=== PATIENT | male | born 1955 | race African-American/Black ===

== ENCOUNTER 2018-10-19 06:39 | Emergency (ER) | payer OTHER ==
[2018-10-19] MEDS ORDERED: NORMAL SALINE 1000 ML 1,000 ML IV ONE (07:14)
[2018-10-19] MEDS ORDERED: ONDANSETRON HCL INJ/PF 4 MG/2 ML SDV IV ONE ×2 (07:14→09:53)
[2018-10-19] MEDS ORDERED: KETOROLAC TROMETHAMINE INJ/PF 30 MG/1 ML SDV IV ONE (07:15)
[2018-10-19 07:27] LABS: ALANINE AMINOTRANSFERASE 61 U/L (21-72); ALBUMIN 3.8 g/dL (3.5-5.0); ALKALINE PHOSPHATASE 66 U/L (38-126); ANION GAP 6 (5-19); ASPARTATE AMINO TRANSFERASE 69 U/L (17-59); BILIRUBIN,DIRECT 0.2 mg/dL (0.0-0.4); BILIRUBIN,TOTAL 1.1 mg/dL (0.2-1.3); BLOOD UREA NITROGEN 14 mg/dL (7-20); CALCIUM 9.1 mg/dL (8.4-10.2); CARBON DIOXIDE 29 mmol/L (22-30); CHLORIDE 103 mmol/L (98-107); GLUCOSE 140 mg/dL (75-110); POTASSIUM 4.3 mmol/L (3.6-5.0); TOTAL PROTEIN 7.2 g/dL (6.3-8.2)
[2018-10-19 07:33] LABS: ABSOLUTE BASOPHILS # (AUTO) 0.1 10^3/uL (0.0-0.2); ABSOLUTE EOSINOPHILS # (AUTO) 0.2 10^3/uL (0.0-0.6); ABSOLUTE LYMPHOCYTES (AUTO) 1.5 10^3/uL (0.5-4.7); ABSOLUTE MONOCYTES (AUTO) 1.1 10^3/uL (0.1-1.4); EOSINOPHILS % (AUTO) 2.3 % (0-6); HEMATOCRIT 38.5 % (37.9-51.0); HEMOGLOBIN 12.7 g/dL (13.5-17.0); MEAN CORPUSCULAR HEMOGLOBIN 26.8 pg (27.0-33.4); MEAN CORPUSCULAR HGB CONC 33.1 g/dL (32.0-36.0); MEAN CORPUSCULAR VOLUME 81 fl (80-97); PLATELET COUNT 266 10^3/uL (150-450); RED BLOOD COUNT 4.76 10^6/uL (4.35-5.55); RED CELL DISTRIBUTION WIDTH 15.5 % (11.5-14.0); SEGMENTED NEUTROPHILS % (AUTO) 67.7 % (42-78); TOTAL CELLS COUNTED % (AUTO) 100 %; WHITE BLOOD COUNT 8.9 10^3/uL (4.0-10.5)
--- NOTE | 2018-10-19 07:42 | RADIOLOGY REPORT (SQ) ---
EXAM DESCRIPTION: XR CHEST 1 VIEW COMPLETED DATE/TME: 10/19/2018 07:05 CLINICAL HISTORY: 63 years, Male, fever COMPARISON: None. NUMBER OF VIEWS: One TECHNIQUE: AP view the chest LIMITATIONS: None. FINDINGS: The lungs are clear. The heart is normal in size. There is no proximal or pleural effusion. The bones are unremarkable. IMPRESSION: copyright 2010 [employer]- All Rights Reserved
[2018-10-19 07:50] LABS: APPEARANCE,URINE CLEAR; BILIRUBIN,URINE NEGATIVE (NEGATIVE); COLOR,URINE YELLOW; GLUCOSE, URINE NEGATIVE (NEGATIVE); KETONES,URINE NEGATIVE (NEGATIVE); LEUKOCYTE ESTERASE,URINE NEGATIVE (NEGATIVE); NITRITE,URINE NEGATIVE (NEGATIVE); PROTEIN,URINE NEGATIVE (NEGATIVE); URINE SPECIFIC GRAVITY 1.016
[2018-10-19 07:54] LABS: A TYPE INFLUENZA AG POSITIVE (NEGATIVE); B INFLUENZA AG NEGATIVE (NEGATIVE)
[2018-10-19] MEDS ORDERED: MORPHINE SULFATE 10 MG/ML INJ IV ONE (09:52)
[2018-10-19 09:54] VITALS: BP 119/79
--- NOTE | 2018-10-19 10:16 | ER Document Report ---
ED General - General Chief Complaint: General Weakness Stated Complaint: WEAKNESS Time Seen by Provider: 10/19/18 07:04 TRAVEL OUTSIDE OF THE [place] IN LAST 30 DAYS: No - HPI Notes: Patient presents emergency department for evaluation. He states on Saturday morning he started developing body aches. He is dry hacking cough. He complains of some mild sore throat. He just feels weak, near syncopal. He has had severe nausea but no emesis. Normal bowel movements. Still urinating. He was unaware of any fevers at home. - Related Data Allergies/Adverse Reactions: No Known Allergies Allergy (Unverified 10/19/18 06:51) Past Medical History - General Information source: Patient - Social History Smoking Status: Never Smoker Family History: Reviewed & Not Pertinent Patient has suicidal ideation: No Patient has homicidal ideation: No - Past Medical History Cardiac Medical History: Reports: Hx Hypercholesterolemia, Hx Hypertension Endocrine Medical History: Reports: Hx Diabetes Mellitus Type 2 Renal/ Medical History: Denies: Hx Peritoneal Dialysis Review of Systems - Review of Systems Constitutional: Malaise, Weakness EENT: No symptoms reported Cardiovascular: See HPI Respiratory: See HPI Gastrointestinal: See HPI Genitourinary: No symptoms reported Musculoskeletal: See HPI Skin: No symptoms reported Neurological/Psychological: No symptoms reported Physical Exam - Vital signs Vitals: Temp Pulse Resp BP Pulse Ox 100.7 F H 108 H 22 H 149/93 H 92 10/19/18 06:51 10/19/18 06:51 10/19/18 06:51 10/19/18 06:51 10/19/18 06:51 - Notes Notes: Vital signs reviewed, please refer to chart. Patient is normocephalic, atraumatic. Pupils equal round, reactive to light. Oral mucosa is moist. Pharynx is mildly erythematous without exudate. Neck is supple without meningismus. Heart is regular rate and rhythm. Lungs are clear to auscultation bilaterally. Abdomen is soft, nontender, normoactive bowel sounds throughout. Extremities without cyanosis, clubbing, edema. Peripheral pulses are equal. Skin is warm and dry. Examination of the spine is no midline tenderness or step-off. There is no paraspinal musculature tenderness is appreciated. Patient is awake, alert, oriented x3. Cranial nerves II to XII are grossly intact without focal neurological deficits. Strength is +5/5 bilateral upper and lower extremities. Reflexes symmetrical. Sensation is intact, gait within normal limits. Course - Re-evaluation Re-evalutation: 10/19/18 10:15 Patient presents to the emergency department for evaluation. Given his age, significant complaint of weakness, as well as a fever, septic workup was started. His symptoms however, are most consistent with influenza. He was given fluids, pain medication, nausea medication. His influenza swab was positive for influenza A. There are no other significant findings on his laboratory investigations or imaging that warranted acute intervention. Patient is feeling somewhat improved. He is told to stay well-hydrated. He is outside of the window for any sort of antiviral treatment. He is to follow-up with his doctor this week, return to the emergency department with worsening or new concerning symptoms. - Vital Signs Vital signs: Temp Pulse Resp BP Pulse Ox 100.7 F H 108 H 14 119/79 94 10/19/18 06:51 10/19/18 06:51 10/19/18 09:01 10/19/18 09:01 10/19/18 09:01 - Laboratory Result Diagrams: 10/19/18 07:00 10/19/18 07:00 Laboratory results interpreted by me: 10/19/18 10/19/18 10/19/18 06:50 07:00 07:00 Hgb 12.7 L MCH 26.8 L RDW 15.5 H Creatinine 1.37 H Est GFR (Non-Af Amer) 53 L Glucose 140 H POC Glucose 133 H AST 69 H Urine Urobilinogen 10/19/18 07:30 Hgb MCH RDW Creatinine Est GFR (Non-Af Amer) Glucose POC Glucose AST Urine Urobilinogen 4.0 H Discharge - Discharge Clinical Impression: Influenza A, Weakness Condition: Stable Disposition: HOME, SELF-CARE Instructions: Acetaminophen, Influenza ([facility]) [id number] Additional Instructions: Rest, stay well-hydrated. Tylenol and ibuprofen as needed for pain and fever. Use Zofran as needed for nausea. Follow-up with your doctor this week. If you develop worsening or new concerning symptoms of any sort, return to the emergency department for reevaluation. Prescriptions: Ondansetron [Zofran Odt 4 mg Tablet] 1 tab PO Q4H PRN #15 tab.rapdis PRN Reason: For Nausea/Vomiting Forms: Return to Work
--- NOTE | 2018-10-19 11:10 | EKG REPORT ---
SEVERITY:- BORDERLINE ECG - SINUS TACHYCARDIA BORDERLINE T WAVE ABNORMALITIES : Confirmed by: Wen Ramirez MD 19-Oct-2018 11:08:45
== END 2018-10-19 10:40 | disposition home or self-care (01) ==
LOC: ER 06:39
DX: J10.1 Influenza due to other identified influenza virus with other respiratory manifestations (principal); R05 Cough; R53.1 Weakness; R11.0 Nausea; E11.9 Type 2 diabetes mellitus without complications; I10 Essential (primary) hypertension; R53.81 Other malaise; R50.9 Fever, unspecified
CPT/HCPCS: 93005; 96376; 99284; 96361; 96374; 96375; 36415; 82962; 85025; 80053; 81001; 83605; 87804; 71045; 93010; J1885; J2270; J2405; J7030

== ENCOUNTER 2018-10-25 15:42 | Inpatient (IN) | payer OTHER ==
--- NOTE | 2018-10-25 17:02 | RADIOLOGY REPORT (SQ) ---
EXAM DESCRIPTION: CHEST 2 VIEWS COMPLETED DATE/TIME: 10/25/2018 4:49 pm REASON FOR STUDY: SOB COMPARISON: 10/19/2018 EXAM PARAMETERS: NUMBER OF VIEWS: two views TECHNIQUE: Digital Frontal and Lateral radiographic views of the chest acquired. RADIATION DOSE: NA LIMITATIONS: none FINDINGS: LUNGS AND PLEURA: New airspace consolidation in the right lung base. There is also small amount of fluid noted within the minor fissure as well as the major fissure. There is increase abigail pt acuity of pulmonary vasculature throughout. MEDIASTINUM AND HILAR STRUCTURES: No masses or contour abnormalities. HEART AND VASCULAR STRUCTURES: Heart normal size. No evidence for failure. BONES: No acute findings. HARDWARE: None in the chest. OTHER: No other significant finding. IMPRESSION: New airspace consolidation in the right lung base. This may represent pneumonia in the correct clinical setting. With the presence of fluid in the minor and major fissure as well as incre ased conspicuity of pulmonary vasculature, this could also represent congestive heart failure. Clini omar correlation is required. TECHNICAL DOCUMENTATION: JOB ID: [id number] [employer]- All Rights Reserved Reading location - IP/workstation name: [email or web address]
--- NOTE | 2018-10-25 17:17 | ER Document Report ---
ED Medical Screen (RME) - General Chief Complaint: Flu Symptoms Stated Complaint: FLU LIKE SYMPTOMS Time Seen by Provider: 10/25/18 16:33 Notes: Patient is a 63-year-old male who presents to the emergency department for generalized shortness of breath and weakness. Patient was seen at this facility 1 week ago diagnosed with influenza A. Patient states he initially felt as though he was getting better but then felt as though he was getting worse. Patient states he is unable to walk around his house without getting short of breath. Patient states he is also noted bilateral lower extremities to be "more swollen than normal." Patient denies any history of congestive heart failure. LUNGS: Diminished to auscultation bilaterally, No respiratory distress at rest although when patient starts to speak in full sentences he becomes tachypneic. HEART: Regular rate and rhythm. No murmur EXTREMITIES: Moves all 4 extremities spontaneously. normal radial pulses bilaterally. +1 pitting edema noted bilateral lower extremities, compression stockings noted bilaterally. I have greeted and performed a rapid initial assessment of this patient. A comprehensive ED assessment and evaluation of the patient, analysis of test results and completion of the medical decision making process will be conducted by additional ED providers. TRAVEL OUTSIDE OF THE [place] IN LAST 30 DAYS: No - Related Data Allergies/Adverse Reactions: No Known Allergies Allergy (Verified 10/25/18 15:43) Past Medical History - Social History Chew tobacco use (# tins/day): No Frequency of alcohol use: None Drug Abuse: None - Past Medical History Cardiac Medical History: Reports: Hx Hypercholesterolemia, Hx Hypertension Endocrine Medical History: Reports: Hx Diabetes Mellitus Type 2 Renal/ Medical History: Denies: Hx Peritoneal Dialysis Physical Exam - Vital signs Vitals: Temp Pulse Resp BP Pulse Ox 98.6 F 77 20 140/83 H 94 10/25/18 15:53 10/25/18 15:53 10/25/18 15:53 10/25/18 15:53 10/25/18 15:53 Course - Vital Signs Vital signs: Temp Pulse Resp BP Pulse Ox 98.6 F 77 20 140/83 H 98 10/25/18 15:53 10/25/18 15:53 10/25/18 15:53 10/25/18 15:53 10/25/18 16:43
[2018-10-25] MEDS ORDERED: IPRATROPIUM/ALBUTEROL 0.5-2.5 MG/3 ML AMPUL NEB ONE (17:58)
[2018-10-25] MEDS ORDERED: METHYLPREDNISOLONE INJ 125 MG/2 ML SDV IV ONE (17:59)
[2018-10-25 18:08] LABS: HEMATOCRIT 36.4 % (37.9-51.0); HEMOGLOBIN 12.2 g/dL (13.5-17.0); MEAN CORPUSCULAR HEMOGLOBIN 26.7 pg (27.0-33.4); MEAN CORPUSCULAR HGB CONC 33.4 g/dL (32.0-36.0); MEAN CORPUSCULAR VOLUME 80 fl (80-97); PLATELET COUNT 335 10^3/uL (150-450); RED BLOOD COUNT 4.54 10^6/uL (4.35-5.55); WHITE BLOOD COUNT 10.4 10^3/uL (4.0-10.5)
--- NOTE | 2018-10-25 18:08 | ER Document Report ---
ED Respiratory Problem - General Chief Complaint: Flu Symptoms Stated Complaint: FLU LIKE SYMPTOMS Time Seen by Provider: 10/25/18 16:33 Mode of Arrival: Ambulatory Information source: Patient, Relative Notes: Patient is a 63-year-old morbidly obese male who comes to the emergency room with complaint of increasing shortness of breath fatigue. Patient states that he was here on 19 October diagnosed with influenza and was sent home on the same day with some kind of nausea medication. He states he got a little bit better and then over the past couple days has gone downhill. Past couple days she is felt chilled and has had a cough productive of some green yellow type phlegm and that is when he can get it up per patient. He also states that he coughs so hard sometimes he feel like he is going to throw up. He states he has been really chilling so he thinks he has had a fever but has not measured it. He last took Motrin this morning around 11 AM. Patient has a history of hypertensi on, insulin-dependent diabetes. Patient denies any history of congestive heart failure or cardiac problems. TRAVEL OUTSIDE OF THE [place] IN LAST 30 DAYS: No - HPI Patient complains to provider of: Cough, Hurts to breath, Short of breath Onset: Last week Duration: Worse/persistent Initiating Event: Exertion Quality of pain: Achy Severity: Moderate Pain Level: 3 Short of Breath: Moderate Cough: Productive Sputum amount: Small Sputum color: Green, Yellow Sputum consistency: Thick Associated symptoms: Chills, Congestion, Cough, Difficulty breathing, Extertional dyspnea, Facial pain, Fever, Headache, Runny nose, Sinus pain/pressure, Short of breath, Wheezing - Related Data Allergies/Adverse Reactions: No Known Allergies Allergy (Verified 10/25/18 15:43) Past Medical History - Social History Smoking Status: Never Smoker Chew tobacco use (# tins/day): No Frequency of alcohol use: None Drug Abuse: None Family History: Reviewed & Not Pertinent Patient has suicidal ideation: No Patient has homicidal ideation: No - Past Medical History Cardiac Medical History: Reports: Hx Hypercholesterolemia, Hx Hypertension Endocrine Medical History: Reports: Hx Diabetes Mellitus Type 2 - lantus 50 units HS Renal/ Medical History: Denies: Hx Peritoneal Dialysis Review of Systems - Review of Systems Constitutional: See HPI, Fever, Malaise, Weakness EENT: See HPI, Ear pain, Nose pain, Nose congestion, Sinus pressure, Throat pain Cardiovascular: No symptoms reported Respiratory: See HPI, Cough, Hurts to breathe, Short of breath, Sputum, Wheezing Gastrointestinal: No symptoms reported Genitourinary: No symptoms reported Male Genitourinary: No symptoms reported Musculoskeletal: No symptoms reported Skin: No symptoms reported Hematologic/Lymphatic: No symptoms reported Neurological/Psychological: No symptoms reported -: Yes All other systems reviewed and negative Physical Exam - Vital signs Vitals: Temp Pulse Resp BP Pulse Ox 98.6 F 77 20 140/83 H 94 10/25/18 15:53 10/25/18 15:53 10/25/18 15:53 10/25/18 15:53 10/25/18 15:53 Interpretation: Hypertensive Notes: PHYSICAL EXAMINATION: GENERAL: Patient is a well-nourished well-developed morbidly obese male who on physical exam tonight looks physically ill. Patient does have a hard time catching his breath with a [place] cough. HEAD: Atraumatic, normocephalic. EYES: Pupils equal round and reactive to light, extraocular movements intact, sc leif anicteric, conjunctiva are normal. ENT: Examination patient's head and upper airway showed nasal mucosa to be moderately erythematous and edematous with rhinorrhea noted bilaterally. Also noted is bilateral nasal congestion. Further investigation shows patient has some mild frontal maxillary sinus tenderness to palpation. Bilateral TMs are bulging with air-fluid levels noted. Posterior pharynx shows mild erythema with drainage in the posterior pharynx that is yellowish-green in color. Airway is patent currently. NECK: Normal range of motion, supple without lymphadenopathy. LUNGS: Auscultation patient's lung barton show he has bilateral breath sounds with breath sounds decreased throughout there is some inspiratory expiratory wheezes that are very tight. This is both bilateral lung barton. No rhonchi is heard on either side. No rales are noted at this time. HEART: Regular rate and rhythm without murmurs ABDOMEN: Soft, nontender, nondistended abdomen. No guarding, no rebound. No masses appreciated. Musculoskeletal: Normal range of motion, no pitting or edema. No cyanosis. NEUROLOGICAL: Normal speech, normal gait. Normal sensory, motor exams PSYCH: Normal mood, normal affect. SKIN: Warm, Dry, normal turgor, no rashes or lesions noted. - Notes Notes: PHYSICAL EXAMINATION: GENERAL: Patient is appearing 63-year-old male. Slightly clammy to touch and pale. HEAD: Atraumatic, normocephalic. EYES: Pupils equal round and reactive to light, extraocular movements intact, sclera anicteric, conjunctiva are normal. ENT: Examination head and upper airway showed nasal mucosa to be moderately erythematous and edematous with rhinorrhea greenish yellow type in color. Patient displays some mild frontal maxillary sinus tenderness to palpation. Bilateral TMs are bulging with mild air-fluid levels. Patient also noted to have by lateral nasal congestion. Posterior pharynx shows moderate amount of erythema with exudate yellowish green in color. NECK: Normal range of motion, supple without lymphadenopathy LUNGS: Auscultation patient's lung barton show he has bilateral breath sounds breath sounds are decreased throughout with a inspiratory expiratory wheeze noted. Patient instructed on risks and benefits of medications prescribed. Denies any concerns regarding such. HEART: Regular rate and rhythm without murmurs ABDOMEN: Soft, nontender, nondistended abdomen. No guarding, no rebound. No masses appreciated. Musculoskeletal: Normal range of motion, no pitting or edema. No cyanosis. NEUROLOGICAL: Normal speech, normal gait. Normal sensory, motor exams PSYCH: Normal mood, normal affect. SKIN: Warm, Dry, normal turgor, no rashes or lesions noted. Course - Re-evaluation Re-evalutation: 10/25/18 20:13 I had a long discussion with patient about options of being admitted versus going home. I felt more compelled the patient could possibly go home but is satting in the 90s low and so that kind of concern me. I asked the patient when he would prefer to do and he elected to come into the hospital if possible he states he feels just so bad he just wanted to try doing it alone at home again. I told him I could not promise him anything that I would talk to the hospitalist and I did run this by the hospitalist to did accept him as an inpatient for IV antibiotics. - Vital Signs Vital signs: Temp Pulse Resp BP Pulse Ox 98.6 F 77 20 140/83 H 98 10/25/18 15:53 10/25/18 15:53 10/25/18 15:53 10/25/18 15:53 10/25/18 16:43 - Laboratory Result Diagrams: 10/25/18 17:20 10/25/18 19:10 Laboratory results interpreted by me: 10/25/18 10/25/18 17:20 19:10 Hgb 12.2 L Hct 36.4 L MCH 26.7 L RDW 15.0 H Band Neutrophils % 1 L Glucose 120 H AST 68 H ALT 75 H Alkaline Phosphatase 139 H Albumin 3.3 L Discharge - Discharge Clinical Impression: Pneumonia Qualifiers: Pneumonia type: due to unspecified organism Laterality: right Lung location: lower lobe of lung Qualified Code(s): J18.1 - Lobar pneumonia, unspecified organism Condition: Fair Disposition: ADMITTED OBSERVATION Admitting Provider: Kailey (Hospitalist)
[2018-10-25 18:37] LABS: ABSOLUTE MONOCYTES # (MANUAL) 0.4 10^3/uL (0.1-1.4); ABSOLUTE NEUTROPHILS# (MANUAL) 5.6 10^3/uL (1.7-8.2); BAND NEUTROPHILS % (MANUAL) 1 % (3-5); BASOPHILS % (MANUAL) 0 % (0-2); EOSINOPHILS % (MANUAL) 4 % (0-6); LYMPHOCYTES % (MANUAL) 38 % (13-45); MONOCYTES % (MANUAL) 4 % (3-13); NT PRO BNP 38 pg/mL (5-900); SEGMENTED NEUTROPHILS % (MAN) 53 % (42-78); TOTAL CELLS COUNTED 100
[2018-10-25 18:38] LABS: ANISOCYTOSIS SLIGHT; BURR CELLS SLIGHT; OVALOCYTES 1+; PLATELET CLUMPS PRESENT; PLATELET COMMENT ADEQUATE; POIKILOCYTOSIS 1+; TOXIC GRANULATION 1+
[2018-10-25 18:45] LABS: TROPONIN I < 0.012 ng/mL
[2018-10-25] MEDS ORDERED: CEFTRIAXONE INJ 1000 MG VIAL IM ONE ×2 (19:05→20:09)
[2018-10-25 19:50] LABS: ALANINE AMINOTRANSFERASE 75 U/L (21-72); ALBUMIN 3.3 g/dL (3.5-5.0); ALKALINE PHOSPHATASE 139 U/L (38-126); ANION GAP 7 (5-19); ASPARTATE AMINO TRANSFERASE 68 U/L (17-59); BILIRUBIN,DIRECT 0.3 mg/dL (0.0-0.4); BILIRUBIN,TOTAL 0.8 mg/dL (0.2-1.3); BLOOD UREA NITROGEN 10 mg/dL (7-20); CALCIUM 8.5 mg/dL (8.4-10.2); CARBON DIOXIDE 28 mmol/L (22-30); CHLORIDE 103 mmol/L (98-107); GLUCOSE 120 mg/dL (75-110); SODIUM 137.7 mmol/L (137-145); TOTAL PROTEIN 6.7 g/dL (6.3-8.2)
[2018-10-25] MEDS ORDERED: AZITHROMYCIN INJ 500 MG VIAL IV ONE (20:09)
[2018-10-25] MEDS ORDERED: ACETAMINOPHEN WITH CODEINE #3 TABLET PO ONE (20:21)
[2018-10-25] MEDS ORDERED: ACETAMINOPHEN 325 MG TABLET PO PRN (20:40)
[2018-10-25] MEDS ORDERED: IPRATROPIUM/ALBUTEROL 0.5-2.5 MG/3 ML AMPUL NEB PRN (20:50)
[2018-10-25] MEDS ORDERED: CEFTRIAXONE INJ 1000 MG VIAL IV ONE (20:59)
--- NOTE | 2018-10-25 21:10 | EKG REPORT ---
SEVERITY:- NORMAL ECG - SINUS RHYTHM : Confirmed by: Kev Nicolas MD 25-Oct-2018 21:09:51
[2018-10-25] MEDS: FAMOTIDINE 20 MG TABLET PO SCH (21:54)
[2018-10-25] MEDS: GUAIFENESIN 600 MG TABLET.SA PO SCH (21:54)
[2018-10-25] MEDS: NORMAL SALINE 1000 ML 1,000 ML IV PRN (22:40)
[2018-10-25] MEDS ORDERED: INSULIN GLARGINE,HUM.REC.ANLOG 1,000 UNIT/10 ML VIAL (PYX) SUBCUT PRN (23:22)
--- NOTE | 2018-10-25 23:23 | PDOC H&P ---
History of Present Illness Admission Date/PCP: 10/25/18 20:40 Patient complains of: Shortness of breath and cough History of Present Illness: JOHN MORA JR is a 63 year old -[place]ym[place] male with history of hypertension, dyslipidemia and type 2 diabetes mellitus who presented to the emergency room with acute onset of worsening dyspnea with associated cough productive of yellowish sputum as well as wheezing for the last couple of days with no fever or chills. His symptoms started on Saturday last week and he was seen in the emergency room on Saturday and was found to have influenza A. Apparently he was not given antiviral therapy. He has been improving until and then his symptoms get significantly worse. He denied any chest pain or palpitations. No headache or dizziness or blurred vision. He has been having mild rhinorrhea without nasal congestion or sore throat or earache. Upon presentation to the emergency room his EKG showed normal sinus rhythm with a rate of 78 and his vital signs revealed a blood pressure 140/83 with a pulse of 77 respiratory rate of 20 temperature 98.6 and pulse oximetry was 94% on room air. Respiratory rate later on was 31 and his labs revealed mild anemia with hemoglobin of 12.2 hematocrit 36.4 and his CMP was remarkable for elevated LFTs with AST 68, ALT of 75 and alk phos of 139 with low albumin of 3.3. Portable chest x-ray revealed right basilar infiltrate concerning for pneumonia as well as fluid in the minor and major fissure that could be related to pulmonary vascular congestion. The patient was given IV Rocephin and Zithromax, Tylenol No. 3 and duo nebs as well as IV Solu-Medrol. He will be admitted to medical monitor bed for further evaluation and management.. Past Medical History Cardiac Medical History: Reports: Hyperlipidema, Hypertension Endocrine Medical History: Reports: Diabetes Mellitus Type 2 - lantus 50 units HS Past Surgical History Past Surgical History: Reports: Tonsillectomy, Other - Left cataract extraction and IOL implantation Social History Smoking Status: Never Smoker Frequency of Alcohol Use: None Hx Recreational Drug Use: No Family History Family History: His father from complications of diabetes mellitus. Parental Family History Reviewed: Yes Children Family History Reviewed: Yes Sibling(s) Family History Reviewed.: Yes Medication/Allergy Home Medications: Ondansetron [Zofran Odt 4 mg Tablet] 1 tab PO Q4H PRN #15 tab.rapdis 10/19/18 Aspirin [Ecotrin 81 mg EC Tablet] 81 mg PO DAILY 10/25/18 Insulin Aspart [Novolog Flexpen] 14 units SUBCUT AC 10/25/18 Insulin Glargine,Hum.rec.anlog [Lantus Insulin 100 Unit/1 ml 10 ml] 50 unit SUBCUT HSP 10/25/18 Sitagliptin Phos/Metformin HCl [Janumet Xr 50-1,000 mg Tablet] 50 - 1,000 mg PO BID 10/25/18 Allergies/Adverse Reactions: No Known Allergies Allergy (Verified 10/25/18 15:43) Review of Systems Review of Systems: As per history of present illness. All pertinent systems were reviewed above. Constitutional, HEENT, cardiovascular, respiratory, GI, , musculoskeletal, neuro, psychiatric, endocrine, integumentary and hematologic systems were reviewed and are otherwise negative/unremarkable except for positive findings mentioned above in the HPI. Physical Exam Vital Signs: Temp Pulse Resp BP Pulse Ox 98.2 F 77 20 132/97 H 97 10/25/18 22:01 10/25/18 15:53 10/25/18 22:14 10/25/18 22:14 10/25/18 22:14 Intake & Output 10/24/18 10/25/18 10/26/18 06:59 06:59 06:59 Weight 150.8 kg Exam: Generally: Pleasant middle-aged -[place]ym[place] male in mild respiratory distress with conversational dyspnea Vital signs-as listed Head - atraumatic, normocephalic. Pupils - equal, round and reactive to light and accommodation. Extraocular movements are intact. No scleral icterus. Oropharynx - moist mucous membranes and tongue. No pharyngeal erythema or exudate. Neck - supple. No JVD. Carotid pulses 2+ bilaterally. No carotid bruits. No palpable thyromegaly or lymphadenopathy. Cardiovascular - regular rate and rhythm. Normal S1 and S2. No murmurs, gallops or rubs. Lungs -diminished right basilar breath sounds with right basal crackles Abdomen - soft and nontender. Positive bowel sounds. No palpable organomegaly or masses. Extremities -trace bilateral lower extremity pitting edema, with no clubbing or cyanosis. Neuro - grossly non-focal. Skin - no rashes. and rectal exam - deferred. Results Laboratory Results: 10/25/18 17:20 10/25/18 19:10 10/25/18 10/25/18 10/25/18 17:20 17:20 17:20 WBC 10.4 RBC 4.54 Hgb 12.2 L Hct 36.4 L MCV 80 MCH 26.7 L MCHC 33.4 RDW 15.0 H Plt Count 335 Seg Neutrophils % Not Reportable Lymphocytes % Not Reportable Monocytes % Not Reportable Eosinophils % Not Reportable Basophils % Not Reportable Absolute Neutrophils Not Reportable Absolute Lymphocytes Not Reportable Absolute Monocytes Not Reportable Absolute Eosinophils Not Reportable Absolute Basophils Not Reportable Sodium Cancelled Potassium Cancelled Chloride Cancelled Carbon Dioxide Cancelled Anion Gap Cancelled BUN Cancelled Creatinine Cancelled Est GFR ( Amer) Cancelled Est GFR (Non-Af Amer) Cancelled Glucose Cancelled Lactic Acid 0.9 Calcium Cancelled Total Bilirubin Cancelled AST Cancelled ALT Cancelled Alkaline Phosphatase Cancelled Total Protein Cancelled Albumin Cancelled 10/25/18 10/25/18 18:40 19:10 WBC RBC Hgb Hct MCV MCH MCHC RDW Plt Count Seg Neutrophils % Lymphocytes % Monocytes % Eosinophils % Basophils % Absolute Neutrophils Absolute Lymphocytes Absolute Monocytes Absolute Eosinophils Absolute Basophils Sodium Cancelled 137.7 Potassium Cancelled 4.0 Chloride Cancelled 103 Carbon Dioxide Cancelled 28 Anion Gap Cancelled 7 BUN Cancelled 10 Creatinine Cancelled 1.06 Est GFR ( Amer) Cancelled > 60 Est GFR (Non-Af Amer) Cancelled > 60 Glucose Cancelled 120 H Lactic Acid Calcium Cancelled 8.5 Total Bilirubin Cancelled 0.8 AST Cancelled 68 H ALT Cancelled 75 H Alkaline Phosphatase Cancelled 139 H Total Protein Cancelled 6.7 Albumin Cancelled 3.3 L 10/25/18 17:20 Troponin I < 0.012 NT-Pro-B Natriuret Pep 38 Impressions: Chest X-Ray 10/25/18 16:33 IMPRESSION: New airspace consolidation in the right lung base. This may represent pneumonia in the correct clinical setting. With the presence of fluid in the minor and major fissure as well as increased conspicuity of pulmonary vasculature, this could also represent congestive heart failure. Clinical correlation is required. Assessment and Plan - Diagnosis (1) Community acquired bacterial pneumonia Is this a current diagnosis for this admission?: Yes Plan: The patient will be admitted to a medically monitored bed for community-acquired pneumonia and will be placed on IV Rocephin and Zithromax. Mucolytic therapy be provided as well as duo nebs q.i.d. and q.4 hours p.r.n.. Sputum Gram stain culture and sensitivity will be obtained. Will follow Blood Cultures. (2) Elevated LFTs Is this a current diagnosis for this admission?: Yes Plan: We will follow LFTs with hydration. (3) Influenza A Is this a current diagnosis for this admission?: Yes Plan: This was diagnosed on Saturday. I do not believe that adding antiviral therapy at this time would provide any further benefit. We will continue to monitor him. (4) Type 2 diabetes mellitus Is this a current diagnosis for this admission?: Yes Plan: The patient will be placed on supplemental coverage with NovoLog and will continue his basal coverage. I will hold off his Janumet XR for now. (5) Hypertension Is this a current diagnosis for this admission?: Yes Plan: The patient will be placed on as needed IV labetalol (6) Dyslipidemia Is this a current diagnosis for this admission?: Yes Plan: This is apparently diet managed. (7) DVT prophylaxis Is this a current diagnosis for this admission?: Yes Plan: Subcutaneous Lovenox - Time Within: within 72 hours - Inpatient Certification Medical Necessity: Need Close Monitoring Due to Risk of Patient Decompensation, Need for IV Antibiotics, Risk of Complication if Not Cared For in Hospital - Plan Summary Plan Summary: The plan of care was discussed in details with the patient. I answered all questions. The patient agreed to proceed with the above-mentioned plan. The patient is presumably full code. This note was created by [employer] software and may contain typo errors that may have not been proofread.
[2018-10-25] MEDS ORDERED: INSULIN GLARGINE,HUM.REC.ANLOG 1,000 UNIT/10 ML VIAL SUBCUT ONE (23:30)
[2018-10-26] MEDS ORDERED: INSULIN GLARGINE,HUM.REC.ANLOG 1,000 UNIT/10 ML VIAL (PYX) SUBCUT PRN (00:30)
[2018-10-26] MEDS ORDERED: INSULIN LISPRO 100 UNIT/ML 3 ML VIAL ONE (00:50)
[2018-10-26] MEDS ORDERED: GLUCAGON,HUMAN RECOMB 1 MG INJ IM PRN (01:00)
[2018-10-26] MEDS ORDERED: DEXTROSE 50%-WATER SYRINGE 12.5 GM/25 ML DOSE IV PRN (01:00)
[2018-10-26] MEDS ORDERED: DEXTROSE 40% GEL 15 GM TUBE X 2 PO PRN (01:00)
[2018-10-26] MEDS ORDERED: DEXTROSE 50%-WATER SYRINGE 25 GM/50 ML DOSE IV PRN (01:00)
[2018-10-26] MEDS ORDERED: DEXTROSE 40% GEL 15 GM TUBE PO PRN (01:00)
[2018-10-26 04:16] LABS: HEMATOCRIT 34.8 % (37.9-51.0); HEMOGLOBIN 11.4 g/dL (13.5-17.0); MEAN CORPUSCULAR HEMOGLOBIN 26.1 pg (27.0-33.4); MEAN CORPUSCULAR HGB CONC 32.7 g/dL (32.0-36.0); MEAN CORPUSCULAR VOLUME 80 fl (80-97); PLATELET COUNT 311 10^3/uL (150-450); RED BLOOD COUNT 4.37 10^6/uL (4.35-5.55); RED CELL DISTRIBUTION WIDTH 15.1 % (11.5-14.0); WHITE BLOOD COUNT 12.2 10^3/uL (4.0-10.5)
[2018-10-26 04:21] LABS: ALANINE AMINOTRANSFERASE 75 U/L (21-72); ALBUMIN 3.3 g/dL (3.5-5.0); ALKALINE PHOSPHATASE 146 U/L (38-126); ANION GAP 9 (5-19); ASPARTATE AMINO TRANSFERASE 64 U/L (17-59); BILIRUBIN,DIRECT 0.3 mg/dL (0.0-0.4); BILIRUBIN,TOTAL 0.4 mg/dL (0.2-1.3); BLOOD UREA NITROGEN 12 mg/dL (7-20); CALCIUM 8.3 mg/dL (8.4-10.2); CARBON DIOXIDE 29 mmol/L (22-30); CHLORIDE 99 mmol/L (98-107); GLUCOSE 282 mg/dL (75-110); SODIUM 137.2 mmol/L (137-145); TOTAL PROTEIN 6.8 g/dL (6.3-8.2)
[2018-10-26 04:52] LABS: ABSOLUTE LYMPHOCYTES# (MANUAL) 1.8 10^3/uL (0.5-4.7); ABSOLUTE MONOCYTES # (MANUAL) 0.5 10^3/uL (0.1-1.4); ABSOLUTE NEUTROPHILS# (MANUAL) 9.9 10^3/uL (1.7-8.2); BAND NEUTROPHILS % (MANUAL) 2 % (3-5); BASOPHILS % (MANUAL) 0 % (0-2); EOSINOPHILS % (MANUAL) 0 % (0-6); LYMPHOCYTES % (MANUAL) 15 % (13-45); METAMYELOCYTES % (MANUAL) 1 % (0); MONOCYTES % (MANUAL) 4 % (3-13); SEGMENTED NEUTROPHILS % (MAN) 77 % (42-78); TOTAL CELLS COUNTED 100
[2018-10-26 04:53] LABS: TOXIC GRANULATION SLIGHT
[2018-10-26 04:55] LABS: ANISOCYTOSIS SLIGHT; BURR CELLS 1+; OVALOCYTES 1+; PLATELET CLUMPS PRESENT; TEAR DROP CELLS SLIGHT
[2018-10-26 04:56] LABS: PROMYELOCYTES % (MANUAL) 1 % (0)
[2018-10-26] MEDS: INSULIN LISPRO 100 UNIT/ML 3 ML VIAL SUBCUT SCH ×3 (07:28→16:17)
[2018-10-26] MEDS: FAMOTIDINE 20 MG TABLET PO SCH ×2 (09:58→22:50)
[2018-10-26] MEDS: ASPIRIN 81 MG TABLET, ENT COATED PO SCH (09:58)
[2018-10-26] MEDS: ENOXAPARIN SODIUM INJ 40 MG/0.4 ML DISP.SYRIN SUBCUT SCH (09:59)
[2018-10-26] MEDS: GUAIFENESIN 600 MG TABLET.SA PO SCH ×2 (09:59→22:50)
[2018-10-26] MEDS: NORMAL SALINE 1000 ML 1,000 ML IV PRN ×2 (10:01→20:05)
[2018-10-26] MEDS: BENZONATATE 100 MG CAPSULE PO SCH ×2 (17:02→22:50)
[2018-10-26] MEDS ORDERED: AZITHROMYCIN 500 MG in DEXTROSE 5%-WATER 250 ML IV SCH (18:00)
[2018-10-26] MEDS ORDERED: METOPROLOL TARTRATE PF/INJ 5 MG/5 ML SDV IV PRN (19:29)
[2018-10-26] MEDS ORDERED: HYDRALAZINE HCL INJ/PF 20 MG/1 ML SDV IV PRN (19:29)
--- NOTE | 2018-10-26 19:33 | PDOC PROGRESS REPORT ---
Subjective Progress Note for:: 10/26/18 Subjective:: JOHN MORA JR is a 63 year old -Belgian male with history of hypertension, dyslipidemia and type 2 diabetes mellitus who presented to the emergency room with acute onset of worsening dyspnea with associated cough productive of yellowish sputum as well as wheezing for the last couple of days with no fever or chills. The patient was seen in the ED on 10/19/2018, diagnosed with influenza A. He was not treated with Tamiflu, offered supportive care. He returned approximately a week later (this admission) and was diagnosed with community acquired PNA. The patient was seen on rounds, he is resting in bed on nasal cannula. He endorses a persistent dry cough and headache. Wheezing can be auscultated in all lung barton. No other adventitious lung sounds. No central or peripheral cyanosis. Patient states he is not a smoker. Plan to increase frequency of nebulizer treatments from q6h PRN to q4h when awake. Will initiate tessalon pearles for cough. Reason For Visit: PNEUOMONIA Physical Exam Vital Signs: Temp Pulse Resp BP Pulse Ox 97.9 F 76 18 119/61 99 10/26/18 02:38 10/26/18 02:38 10/26/18 02:38 10/26/18 02:38 10/26/18 16:52 Pulse Oximeter Continuous Start: 10/25/18 20:40 Freq: RTQ4 Status: Active Protocol: Document 10/26/18 16:52 [facility] (Rec: 10/26/18 16:52 [facility] [id number]) Pulse Oximetry Assessment Oxygen Saturation (92-100) 99 Oxygen Flow Rate (L/min) 1 Oxygen Delivery Method Nasal Cannula Fraction of Inspired Oxygen (FIO2) 24 Equipment Usage Equipment in Use Continuous SpO2 Machine # [id number] Intake & Output 10/25/18 10/26/18 10/27/18 06:59 06:59 06:59 Intake Total 1240 Output Total 650 Balance 590 Weight 151.3 kg General appearance: PRESENT: obese Eye exam: PRESENT: conjunctiva pink, PERRLA Mouth exam: PRESENT: moist, tongue midline Respiratory exam: PRESENT: symmetrical, unlabored, wheezes. ABSENT: retraction, rhonchi Cardiovascular exam: PRESENT: +S1, +S2 Pulses: PRESENT: normal radial pulses, normal dorsalis pedis pul Vascular exam: PRESENT: normal capillary refill GI/Abdominal exam: PRESENT: soft. ABSENT: distended, tenderness Rectal exam: PRESENT: deferred Extremities exam: PRESENT: full ROM Musculoskeletal exam: PRESENT: ambulatory, full ROM Neurological exam: PRESENT: alert, awake, oriented to person, oriented to place, oriented to time, oriented to situation Psychiatric exam: PRESENT: appropriate affect Skin exam: PRESENT: intact, normal color Results Laboratory Results: 10/26/18 03:48 10/26/18 03:48 10/25/18 10/26/18 10/26/18 19:10 03:48 03:48 WBC 12.2 H RBC 4.37 Hgb 11.4 L Hct 34.8 L MCV 80 MCH 26.1 L MCHC 32.7 RDW 15.1 H Plt Count 311 Seg Neutrophils % Not Reportable Lymphocytes % Not Reportable Monocytes % Not Reportable Eosinophils % Not Reportable Basophils % Not Reportable Absolute Neutrophils Not Reportable Absolute Lymphocytes Not Reportable Absolute Monocytes Not Reportable Absolute Eosinophils Not Reportable Absolute Basophils Not Reportable Sodium 137.7 137.2 Potassium 4.0 5.0 D Chloride 103 99 Carbon Dioxide 28 29 Anion Gap 7 9 BUN 10 12 Creatinine 1.06 1.09 Est GFR ( Amer) > 60 > 60 Est GFR (Non-Af Amer) > 60 > 60 Glucose 120 H 282 H Calcium 8.5 8.3 L Total Bilirubin 0.8 0.4 AST 68 H 64 H ALT 75 H 75 H Alkaline Phosphatase 139 H 146 H Total Protein 6.7 6.8 Albumin 3.3 L 3.3 L 10/25/18 17:20 Troponin I < 0.012 NT-Pro-B Natriuret Pep 38 Impressions: Chest X-Ray 10/25/18 16:33 IMPRESSION: New airspace consolidation in the right lung base. This may repre sent pneumonia in the correct clinical setting. With the presence of fluid in the minor and major fissure as well as increased conspicuity of pulmonary vasculature, this could also represent congestive heart failure. Clinical correlation is required. Status: Imported from PACS Assessment and Plan - Diagnosis (1) Community acquired bacterial pneumonia Is this a current diagnosis for this admission?: Yes Plan: As seen on CXR Azithro/Rocephin IV Scheduled nebulizer treatments Supplemental O2 for SPO2>93% Solumedrol 40mg q8h Tessalon pearles for cough (2) Dyslipidemia Is this a current diagnosis for this admission?: Yes Plan: Continue home dose statin (3) Hypertension Is this a current diagnosis for this admission?: Yes Plan: PMH HTN Relatively well controlled Continue home dose Telmisartan/HCTZ PRN Hydralazine for SBP > 170 PRN Metoprolol for SBP > 170 or HR > 120 (4) Influenza A Is this a current diagnosis for this admission?: Yes Plan: (+) Influenza A on 10/19/2018 Tamiflu would likely not help him at this time Supportive care only - IVF, nebs, etc. (5) Type 2 diabetes mellitus Qualifiers: Diabetes mellitus half-way insulin use: with half-way use Diabetes mellitus complication status: without complication Qualified Code(s): E11.9 - Type 2 diabetes mellitus without complications; Z79.4 - moth exterminator (current) use of insulin Is this a current diagnosis for this admission?: Yes Plan: PMH DM Accucheks ACHS Humalog SSI Check HgbA1c tomorrow AM - Time Time Spent with patient: 15-24 minutes Medications reviewed and adjusted accordingly: Yes Anticipated discharge: Home - Inpatient Certification Based on my medical assessment, after consideration of the patient's comorbidities, presenting symptoms, or acuity I expect that the services needed warrant INPATIENT care.: Yes I certify that my determination is in accordance with my understanding of Medicare's requirements for reasonable and necessary INPATIENT services [42 CFR 412.3e].: Yes Medical Necessity: Risk of Complication if Not Cared For in Hospital
[2018-10-26] MEDS: IPRATROPIUM/ALBUTEROL 0.5-2.5 MG/3 ML AMPUL NEB SCH (19:38)
[2018-10-26] MEDS ORDERED: CEFTRIAXONE 1 GM/D5W RTU 1 GM/50 ML RTUPB IV SCH (20:00)
[2018-10-26] MEDS ORDERED: ATORVASTATIN CALCIUM 80 MG TABLET PO SCH (22:00)
[2018-10-26] MEDS ORDERED: INSULIN GLARGINE,HUM.REC.ANLOG 1,000 UNIT/10 ML VIAL SUBCUT SCH (22:00)
[2018-10-26] MEDS ORDERED: METHYLPREDNISOLONE INJ 40 MG/1 ML SDV IV SCH (22:00)
[2018-10-26] MEDS ORDERED: INSULIN GLARGINE,HUM.REC.ANLOG 1,000 UNIT/10 ML VIAL (PYX) SUBCUT ONE (22:41)
[2018-10-27] MEDS: INSULIN LISPRO 100 UNIT/ML 3 ML VIAL SUBCUT SCH ×4 (00:03→17:06)
[2018-10-27] MEDS ORDERED: METHYLPREDNISOLONE INJ 40 MG/1 ML SDV IV SCH ×2 (02:00→14:00)
[2018-10-27] MEDS: BENZONATATE 100 MG CAPSULE PO SCH ×2 (06:34→14:14)
[2018-10-27 06:47] LABS: HEMATOCRIT 33.5 % (37.9-51.0); HEMOGLOBIN 10.9 g/dL (13.5-17.0); MEAN CORPUSCULAR HEMOGLOBIN 26.1 pg (27.0-33.4); MEAN CORPUSCULAR HGB CONC 32.4 g/dL (32.0-36.0); MEAN CORPUSCULAR VOLUME 81 fl (80-97); PLATELET COUNT 376 10^3/uL (150-450); RED BLOOD COUNT 4.16 10^6/uL (4.35-5.55); RED CELL DISTRIBUTION WIDTH 15.2 % (11.5-14.0); WHITE BLOOD COUNT 14.4 10^3/uL (4.0-10.5)
[2018-10-27 07:05] LABS: ALANINE AMINOTRANSFERASE 68 U/L (21-72); ALBUMIN 3.2 g/dL (3.5-5.0); ALKALINE PHOSPHATASE 127 U/L (38-126); ANION GAP 6 (5-19); ASPARTATE AMINO TRANSFERASE 53 U/L (17-59); BILIRUBIN,DIRECT 0.3 mg/dL (0.0-0.4); BILIRUBIN,TOTAL 0.4 mg/dL (0.2-1.3); BLOOD UREA NITROGEN 13 mg/dL (7-20); CALCIUM 8.3 mg/dL (8.4-10.2); CARBON DIOXIDE 30 mmol/L (22-30); CHLORIDE 101 mmol/L (98-107); GLUCOSE 165 mg/dL (75-110); POTASSIUM 4.3 mmol/L (3.6-5.0); SODIUM 136.9 mmol/L (137-145); TOTAL PROTEIN 6.4 g/dL (6.3-8.2)
[2018-10-27 07:37] LABS: ABSOLUTE LYMPHOCYTES# (MANUAL) 3.6 10^3/uL (0.5-4.7); ABSOLUTE MONOCYTES # (MANUAL) 1.6 10^3/uL (0.1-1.4); ABSOLUTE NEUTROPHILS# (MANUAL) 8.8 10^3/uL (1.7-8.2); BAND NEUTROPHILS % (MANUAL) 2 % (3-5); BASOPHILS % (MANUAL) 2 % (0-2); EOSINOPHILS % (MANUAL) 1 % (0-6); LYMPHOCYTES % (MANUAL) 24 % (13-45); METAMYELOCYTES % (MANUAL) 2 % (0); MONOCYTES % (MANUAL) 11 % (3-13); SEGMENTED NEUTROPHILS % (MAN) 57 % (42-78); TOTAL CELLS COUNTED 100
[2018-10-27 07:38] LABS: ANISOCYTOSIS SLIGHT; OVALOCYTES 1+; PLATELET CLUMPS PRESENT; POIKILOCYTOSIS 2+; TEAR DROP CELLS 1+
[2018-10-27] MEDS: IPRATROPIUM/ALBUTEROL 0.5-2.5 MG/3 ML AMPUL NEB SCH ×3 (08:22→16:22)
[2018-10-27] MEDS: NORMAL SALINE 1000 ML 1,000 ML IV PRN (08:35)
[2018-10-27] MEDS ORDERED: HYDROCHLOROTHIAZIDE 12.5 MG TABLET PO SCH (10:00)
[2018-10-27] MEDS ORDERED: LOSARTAN POTASSIUM 50 MG TABLET PO SCH (10:00)
[2018-10-27 11:13] VITALS: BP 142/79
[2018-10-27] MEDS: GUAIFENESIN 600 MG TABLET.SA PO SCH (11:50)
[2018-10-27] MEDS: ASPIRIN 81 MG TABLET, ENT COATED PO SCH (11:50)
[2018-10-27] MEDS: FAMOTIDINE 20 MG TABLET PO SCH (11:50)
[2018-10-27] MEDS: ENOXAPARIN SODIUM INJ 40 MG/0.4 ML DISP.SYRIN SUBCUT SCH (11:51)
[2018-10-27 12:44] LABS: PATH REVIEW PATHOLOGIST REVIEWED
[2018-10-27] MEDS ORDERED: CEFTRIAXONE 1 GM/D5W RTU 1 GM/50 ML RTUPB IV SCH ×2 (18:00→22:00)
[2018-10-27] MEDS ORDERED: ATORVASTATIN CALCIUM 80 MG TABLET PO SCH (22:00)
[2018-10-28] MEDS ORDERED: LEVOFLOXACIN 750 MG TABLET PO SCH (10:00)
--- NOTE | 2018-10-31 09:53 | PDOC DISCHARGE SUMMARY ---
General - Admit/Disc Date/PCP Admission Date/Primary Care Provider: 10/25/18 20:40 Discharge Date: 10/27/18 - Discharge Diagnosis (1) Community acquired bacterial pneumonia Is this a current diagnosis for this admission?: Yes (2) Dyslipidemia Is this a current diagnosis for this admission?: Yes (3) Hypertension Is this a current diagnosis for this admission?: Yes (4) Influenza A Is this a current diagnosis for this admission?: Yes (5) Type 2 diabetes mellitus Is this a current diagnosis for this admission?: Yes - Additional Information Discharge Diet: As Tolerated Discharge Activity: Activity As Tolerated Prescriptions: Benzonatate [Tessalon Perles 100 mg Capsule] 100 mg PO Q8 #15 capsule Levofloxacin [Levaquin 750 mg Tablet] 750 mg PO DAILY #5 tablet Home Medications: Aspirin [Ecotrin 81 mg EC Tablet] 81 mg PO DAILY 10/25/18 Insulin Aspart [Novolog Flexpen] 14 units SUBCUT AC 10/25/18 Insulin Glargine,Hum.rec.anlog [Lantus Insulin 100 Unit/1 ml 10 ml] 50 unit SQ QHS 10/25/18 Sitagliptin Phos/Metformin HCl [Janumet Xr 50-1,000 mg Tablet] 50 - 1,000 mg PO Q12 10/25/18 Atorvastatin Calcium [Lipitor 80 mg Tablet] 80 mg PO QHS 10/26/18 Telmisartan/Hydrochlorothiazid [Telmisartan-Hctz 40-12.5 mg Tb] 1 tab PO DAILY 10/26/18 Benzonatate [Tessalon Perles 100 mg Capsule] 100 mg PO Q8 #15 capsule 10/27/18 Levofloxacin [Levaquin 750 mg Tablet] 750 mg PO DAILY #5 tablet 10/27/18 History of Present Illness History of Present Illness: JOHN MORA JR is a 63 year old -[place] male with history of hypertension, dyslipidemia and type 2 diabetes mellitus who presented to the emergency room with acute onset of worsening dyspnea with associated cough pr oductive of yellowish sputum as well as wheezing for the last couple of days with no fever or chills. His symptoms started on Saturday last week and he was seen in the emergency room on Saturday and was found to have influenza A. Apparently he was not given antiviral therapy. He has been improving until and then his symptoms get significantly worse. He denied any chest pain or palpitations. No headache or dizziness or blurred vision. He has been having mild rhinorrhea without nasal congestion or sore throat or earache. Upon presentation to the emergency room his EKG showed normal sinus rhythm with a rate of 78 and his vital signs revealed a blood pressure 140/83 with a pulse of 77 respiratory rate of 20 temperature 98.6 and pulse oximetry was 94% on room air. Respiratory rate later on was 31 and his labs revealed mild anemia with hemoglobin of 12.2 hematocrit 36.4 and his CMP was remarkable for elevated LFTs with AST 68, ALT of 75 and alk phos of 139 with low albumin of 3.3. Portable chest x-ray revealed right basilar infiltrate concerning for pneumonia as well as fluid in the minor and major fissure that could be related to pulmonary vascular congestion. The patient was given IV Rocephin and Zithromax, Tylenol No. 3 and duo nebs as well as IV Solu-Medrol. He will be admitted to medical monitor bed for further evaluation and management.. Hospital Course Hospital Course: JOHN MORA JR is a 63 year old -[place] male with history of hypertension, dyslipidemia and type 2 diabetes mellitus who presented to the emergency room with acute onset of worsening dyspnea with associated cough productive of yellowish sputum as well as wheezing for the last couple of days with no fever or chills. The patient was seen in the ED on 10/19/2018, diagnosed with influenza A. He was not treated with Tamiflu, offered supportive care. He returned approximately a week later (this admission), CXR showed RLL infiltrate. The patient was admitted to the hospitalist service for community acquired PNA. The patient endorsed multiple ill contacts, stating that a number of co-workers were home sick with the flu and multiple family members were currently ill with a URI. He was treated with azithromycin and ceftriaxone IV. Wheezing was present in all lung barton, so he was placed on scheduled IV Solumedrol and scheduled nebulizer treatments. He was offered Tessalon pearles for his persistent cough. The patient's SPO2 on room air was in the 80s (no hx of lung disease), so he was offered supplemental O2 via nasal cannula. The patient was not treated with Tamiflu because it would likely not benefit him since his symptoms began 5+ days ago. Instead, he was offered supportive care - IVF hydration, PRN tylenol, Tessalon pearles. Within 48 hours, the patient stated that he was feeling 'much better.' His wheezing had resolved, he was weaned from supplemental O2 and his vital signs had remained stable. His WBC increased from 9==>14 but this was likely the result of steroid initiation. On hospital day #3 the patient was d ischarged home on PO levaquin for his PNA, a Prednisone taper and Tessalon pearles. The patient was instructed to stay home from work for 1 week while he recovered. The patient stated understanding of his discharge instructions. For further information regarding this patient's hospitalization, please refer to the EMR. Physical Exam Vital Signs: Temp Pulse Resp BP Pulse Ox 98.6 F 70 20 142/79 H 98 10/27/18 15:00 10/27/18 16:22 10/27/18 16:22 10/27/18 15:00 10/27/18 16:22 Pulse Oximeter Continuous Start: 10/25/18 20:40 Freq: RTQ4 Status: Discharge Protocol: Document 10/27/18 16:22 [facility] (Rec: 10/27/18 17:06 [facility] [id number]) Pulse Oximetry Assessment Oxygen Saturation (92-100) 98 Oxygen Delivery Method Room Air Fraction of Inspired Oxygen (FIO2) 21 Equipment Usage Equipment Discontinued Continuous SpO2 Machine # [id number] General appearance: PRESENT: morbidly obese Head exam: PRESENT: atraumatic Eye exam: PRESENT: conjunctiva pink, PERRLA Ear exam: PRESENT: normal external ear exam Mouth exam: PRESENT: moist, tongue midline Neck exam: PRESENT: full ROM Respiratory exam: PRESENT: clear to auscultation yuli, symmetrical, unlabored Cardiovascular exam: PRESENT: +S1, +S2 Pulses: PRESENT: normal radial pulses, normal dorsalis pedis pul Vascular exam: PRESENT: normal capillary refill GI/Abdominal exam: PRESENT: soft, other - ROTUND. OBESE.. ABSENT: distended, tenderness Rectal exam: PRESENT: deferred Extremities exam: PRESENT: full ROM Musculoskeletal exam: PRESENT: ambulatory, full ROM Neurological exam: PRESENT: alert, oriented to person, oriented to place, oriented to time, oriented to situation Psychiatric exam: PRESENT: appropriate affect Skin exam: PRESENT: dry, intact, normal color Results Laboratory Results: 10/27/18 06:23 10/27/18 06:23 10/25/18 23:50 Blood Blood Culture - Final NO GROWTH IN 5 DAYS 10/25/18 17:20 Blood Blood Culture - Final NO GROWTH IN 5 DAYS 10/25/18 17:20 Troponin I < 0.012 NT-Pro-B Natriuret Pep 38 Impressions: Chest X-Ray 10/25/18 16:33 IMPRESSION: New airspace consolidation in the right lung base. This may represent pneumonia in the correct clinical setting. With the presence of fluid in the minor and major fissure as well as increased conspicuity of pulmonary vasculature, this could also represent congestive heart failure. Clinical correlation is required. Status: Imported from PACS Qualifiers - * PATIENT BEING DISCHARGED WITH ANY OF THE FOLLOWING DIAGNOSIS: No Plan Discharge Plan: ANTIBIOTICS FOR PNA. SUPPORTIVE CARE FOR INFLUENZA. RETURN TO WORK IN 1 WEEK. Time Spent: Less than 30 Minutes
== END 2018-10-27 17:43 | disposition home or self-care (01) | DRG 195 ==
LOC: ER 15:42 → EH 20:40 → 2N 23:13
PROVIDERS: ADMIT Family Medicine; ATTEND Family Medicine
PROC: 3E0F73Z Introduction of Anti-inflammatory into Respiratory Tract, Via Natural or Artificial Opening (ICD-10-PCS; principal; 2018-10-26)
DX: J10.08 Influenza due to other identified influenza virus with other specified pneumonia (principal); E66.01 Morbid (severe) obesity due to excess calories; E11.9 Type 2 diabetes mellitus without complications; E78.5 Hyperlipidemia, unspecified; I10 Essential (primary) hypertension; Z79.4 Long term (current) use of insulin; Z79.82 Long term (current) use of aspirin
CPT/HCPCS: 36415; 71046; 80048; 80053; 80076; 82962; 83605; 83880; 84484; 85025; 87040; 87070; 87205; 93005; 93010; 94640; 94660; 94762; 96365; 96372; 96375; 99284; J0456; J0696; J1650; J1815; J2920; J2930; J7030; J7060; J7620